=== PATIENT | female | born 1945 | race Caucasian/White ===

== ENCOUNTER 2023-04-29 09:18 | Outpatient (RCR) | payer OTHER, SELFPAY ==
--- NOTE | 2023-04-27 15:35 | ONC.NURNOTE ---
Received order for blood transfusion for patient. Called patient's daughter to schedule appointment, and daughter notes that patient already has an appointment for fluids on Tuesday. She was frustrated that [facility] was not aware of this, or know what provider would like patient to receive as priority. Machine Bobbin Winder contacted Annita's office and it was decided that patient should be scheduled for blood transfusion, and nursing will talk to Annita about ordering 500cc of fluids to be given in [facility] as well. This could be given to patient while waiting for type and cross. Patients daughter okay with this plan, and Annita's office to contact daughter with final decision.
[2023-04-29] VITALS (7 sets, daily range): BP systolic 71–107; BP diastolic 42–74; PULSE 60–70; RESP 14–16; TEMP 35.7–36.4; O2SAT 97–99
[2023-04-29] MEDS: 0.9 % SODIUM CHLORIDE 500 ML 500 ML IV (11:00)
[2023-04-29] MEDS: 0.9 % SODIUM CHLORIDE 250 ml IV (11:53)
== END 2023-10-26 23:59 | disposition home or self-care (01) ==
LOC: CCIC 09:18
PROVIDERS: PCP Family Medicine; Visit Provider Family Medicine
DX: N18.4 Chronic kidney disease, stage 4 (severe) (principal); I10 Essential (primary) hypertension; E78.5 Hyperlipidemia, unspecified; D69.6 Thrombocytopenia, unspecified
CPT/HCPCS: 36415; 36430; 86850; 86900; 86901; 86922; 96360; J7050; J7120; P9016

== ENCOUNTER 2024-05-14 13:05 | Outpatient (CLI) | payer OTHER, SELFPAY | END 2024-05-14 13:06 | disposition home or self-care (01) | LOC: NFLDREF 05-16 11:01 | PROVIDERS: PCP Family Medicine; Referring Provider Family Medicine; Visit Provider Nurse Practitioner | DX: N30.00 Acute cystitis without hematuria (principal) | CPT/HCPCS: 87086; 87186 ==